=== PATIENT | female | born 1995 | race African-American/Black ===

== ENCOUNTER 2016-11-20 09:03 | Emergency (ER) | payer BC, OTHER ==
[~2016-11-20] VITALS: Ht 162.6 cm; Wt 100.0 kg
[~2016-11-20 09:03] MED LIST: DEPO400I IM; METR-1 PO
[2016-11-20 09:04] VITALS: BP 135/85; PULSE 80; RESP 16; TEMP 98.4; O2SAT 91
--- NOTE | 2016-11-20 10:00 | PD ---
HPI . vaginal discharge/irritation x 1.5 weeks Chief Complaint: [employer] Problem/Complaint Time Seen by Provider: 09:52 Travel History International Travel<30 days: No Contact w/Intl Traveler<30days: No Traveled to known affect area: No History of Present Illness HPI 21-year-old female with past medical history here with complaints of vaginal discharge and irritation for 1-1/2 weeks. Patient states she used Schwarz about a week and a half ago and thinks she may have cut herself slightly. She does admit to a white discharge that is odorless. She also admits to unprotected sex with her boyfriend. Denies any pelvic or abdominal pain. She denies any abnormal vaginal bleeding. PFSH Past Medical History Medical History: Denies Significant Hx Tetanus Vaccination: > 5 Years Influenza Vaccination: No ?: Not : 1 Para: 0 Miscarriage: 0 : 1 Past Surgical History Surgical History: No Previous Surgery Social History Alcohol Use: No Tobacco Use: No Substance Use: Yes (MARIJUANA "OCCASIONALLY") Allergies-Medications (Allergen,Severity, Reaction): Coded Allergies: No Known Allergies (Unverified , 11/20/16) Reported Meds & Prescriptions Reported Meds & Active Scripts Active Diflucan (Fluconazole) 150 Mg Tab 150 Mg PO ONCE Review of Systems General / Constitutional: No: Fever Eyes: No: Visual changes HENT: No: Headaches Cardiovascular: No: Chest Pain or Discomfort Respiratory: No: Shortness of Breath Gastrointestinal: No: Abdominal Pain Genitourinary: Positive: Discharge, No: Dysuria Musculoskeletal: No: Pain Skin: No Rash Neurologic: No: Weakness Psychiatric: No: Depression Endocrine: No: Polydipsia Hematologic/Lymphatic: No: Easy Bruising Physical Exam Narrative GENERAL: AAO x 3, no acute distress, Well-nourished, well-developed patient. SKIN: Warm and dry. No visible rashes or bruising. HEAD: Normocephalic and atraumatic. EYES: No scleral icterus. No injection or drainage. ENT: No nasal drainage noted. Airway patent. NECK: Supple, trachea midline. No JVD. CARDIOVASCULAR: Regular rate and rhythm without murmurs, gallops, or rubs. RESPIRATORY: Breath sounds equal bilaterally. No accessory muscle use. No rhonchi or rales. GASTROINTESTINAL: Abdomen soft, non-tender, nondistended. GENITAL:Kaylin BARKSDALE present, medium speculum used, + thick cottage cheese like discharge without any foul odor. NO visible lesions on labia. EXTREMITIES: No cyanosis or edema. BACK: Nontender without obvious deformity. No CVA tenderness. PSYCH: AAO x 3, normal affect. Data Data Last Documented VS Vital Signs Date Time Temp Pulse Resp B/P Pulse Ox O2 Delivery O2 Flow Rate FiO2 11/20/16 09:40 16 11/20/16 09:04 98.4 80 135/85 91 MDM Medical Decision Making Medical Screen Exam Complete: Yes Emergency Medical Condition: Yes Medical Record Reviewed: Yes Differential Diagnosis Bacterial vaginosis, vaginal irritation, cervicitis Narrative Course 21-year-old female with past medical history here with complaints of vaginal discharge and irritation for 1-1/2 weeks. Patient states she used Schwarz about a week and a half ago and thinks she may have cut herself slightly. She does admit to a white discharge that is odorless. She also admits to unprotected sex with her boyfriend. Denies any pelvic or abdominal pain. She denies any abnormal vaginal bleeding. Diagnosis Primary Impression: Mitzy vaginitis Additional Impressions: Vaginal discharge Vaginal pain Patient Instructions: General Instructions, Vaginal Discharge (ED), Vulvovaginal Candidiasis (ED) Additional Instructions: Follow up with your primary care provider. As we discussed, condoms help prevent against sexually transmitted infections. Use over the counter Monistat on the outer lips of your vaginal area for relief of the irritation/pain. Med/Other Pt SpecificInfo: Prescription(s) given Scripts Fluconazole (Diflucan)150 Mg Frb017 Mg PO ONCE #1 TAB Ref 0 Prov:Enid Fleming 11/20/16 Disposition: 01 DISCHARGE HOME Condition: Stable Enid Fleming Nov 20, 2016 10:00
[2016-11-20] MEDS ORDERED: DIFL150T PO (10:06)
== END 2016-11-20 11:02 | disposition home or self-care (01) ==
LOC: NEPB 09:03
DX: B37.3 Candidiasis of vulva and vagina (principal); R10.2 Pelvic and perineal pain; F12.90 Cannabis use, unspecified, uncomplicated
CPT/HCPCS: 99283

== ENCOUNTER 2017-01-27 11:13 | Emergency (ER) | payer OTHER ==
[~2017-01-27] VITALS: Ht 162.6 cm; Wt 90.0 kg
[~2017-01-27 11:13] MED LIST changes: -DEPO400I IM; +DIFL150T PO; -METR-1 PO
[2017-01-27 11:16] VITALS: BP 136/78; PULSE 88; RESP 12; TEMP 99.6; O2SAT 100
--- NOTE | 2017-01-27 11:44 | PD ---
Physical Exam Time Seen by Provider: 11:41 Narrative 21 year old female presents to the ED for possible exposure to HIV. Pt had negative rapid antibody result. Possible encounter was a week ago. She presents today for HIV blood test and initial post exposure prophylaxis. Pt has no significant medical history and has been well. Data Data Last Documented VS Vital Signs Date Time Temp Pulse Resp B/P Pulse Ox O2 Delivery O2 Flow Rate FiO2 01/27/17 11:16 99.6 88 12 136/78 100 MDM Medical Record Reviewed: Yes Supervised Visit with LATISHA: No Narrative Course 21 year old female presents for HIV blood test and initiation of post exposure prophylaxis. Appears well. VSS Condition: Stable Ne Nielsen Jan 27, 2017 11:44
--- NOTE | 2017-01-27 12:24 | PD ---
HPI Chief Complaint: Medical Clearance Time Seen by Provider: 12:06 Travel History International Travel<30 days: No Contact w/Intl Traveler<30days: No Traveled to known affect area: No History of Present Illness HPI This is a 21-year-old female who presents to the emergency department having had sexual intercourse with someone 1.5 weeks ago who later told her that he was HIV positive. The patient is concerned that she may have HIV. Went to her community clinic appointment today and she had a rapid HIV test which was negative. She was sent here for possible postexposure prophylaxis and possible blood testing. PFSH Past Medical History ?: Unknown LMP: i dont get periods, IUD : 1 Para: 0 Miscarriage: 0 : 1 Social History Alcohol Use: No Tobacco Use: No Substance Use: Yes (MARIJUANA "OCCASIONALLY") Allergies-Medications (Allergen,Severity, Reaction): Coded Allergies: No Known Allergies (Unverified , 01/27/17) Reported Meds & Prescriptions Reported Meds & Active Scripts Active Diflucan (Fluconazole) 150 Mg Tab 150 Mg PO ONCE Review of Systems General / Constitutional: No: Fever, Chills Cardiovascular: No: Chest Pain or Discomfort Physical Exam Narrative GENERAL: Well-appearing, no acute distress, nontoxic SKIN: Warm and dry. HEAD: Atraumatic. Normocephalic. ENT: No nasal bleeding or discharge. Moist mucous membranes MUSCULOSKELETAL: No obvious deformities. No clubbing. No cyanosis. No edema. NEUROLOGICAL: Awake and alert. No obvious cranial nerve deficits. Motor grossly within normal limits. Normal speech. PSYCHIATRIC: Appropriate mood and affect; insight and judgment normal. Data Data Last Documented VS Vital Signs Date Time Temp Pulse Resp B/P Pulse Ox O2 Delivery O2 Flow Rate FiO2 01/27/17 11:16 99.6 88 12 136/78 100 MDM Medical Decision Making Medical Screen Exam Complete: Yes Emergency Medical Condition: Yes Differential Diagnosis HIV, HIV exposure, depression Narrative Course This is a 21-year-old female who presents to the emergency department having had a HIV exposure. She had a negative rapid HIV test at a community clinic prior to arrival. She is not a candidate for postexposure prophylaxis as her exposure was a week and a half ago. I did offer her HIV RNA testing but told her she still would have to have repeat rapid testing performed in 2 months as it's not 100%. She declined blood testing at this time and will follow back up with her community clinic. She was also given resources Michael Ritchie as she is having difficulty dealing with the situation. Diagnosis Primary Impression: HIV exposure Patient Instructions: General Instructions Additional Instructions: Follow up with Mer Ritchie for possible counseling [address] [place] [address] Follow-up to have a repeat HIV test in 60 days Med/Other Pt SpecificInfo: No Change to Meds Disposition: 01 DISCHARGE HOME Condition: Stable Michelle Diaz MD Jan 27, 2017 12:24
== END 2017-01-27 12:56 | disposition home or self-care (01) ==
LOC: NEPD 11:13
DX: Z11.4 Encounter for screening for human immunodeficiency virus [HIV] (principal); Z20.6 Contact with and (suspected) exposure to human immunodeficiency virus [HIV]
CPT/HCPCS: 99283